=== PATIENT | male | born 1985 | race Two or more races ===

== ENCOUNTER 2025-02-02 22:53 | Inpatient (IN) | payer SELFPAY ==
[~2025-02-02] VITALS: Ht 182.9 cm; Wt 113.4 kg
[2025-02-02 23:05] VITALS: TEMP 97.3
[2025-02-03] VITALS (7 sets, daily range): BP systolic 127–129; BP diastolic 63–81; PULSE 51–55; RESP 17–20; TEMP 97.9–98.6; O2SAT 98–99
[2025-02-03] MEDS ORDERED: SODIUM CHLORIDE FLUSH 10 ML SYR INJ PRN (01:30)
[2025-02-03] MEDS ORDERED: LISINOPRIL2.5 MG PO (03:41)
[2025-02-03] MEDS ORDERED: METOPROLOL SUCC25 MG PO (03:41)
[2025-02-03] MEDS ORDERED: ATORVASTATIN CA20 MG PO (03:41)
[2025-02-03] MEDS ORDERED: ASPIRIN81 MG PO (03:41)
[2025-02-03] MEDS ORDERED: PLAVIX75 MG PO (03:41)
[2025-02-03] MEDS: ASPIRIN 81 MG CHEW TAB PO ONE (03:47)
[2025-02-03 07:43] LABS: CHOL/HDL RATIO 6.5 (3.9-4.7)
[2025-02-03] MEDS: CLOPIDOGREL BISULFATE 75 MG TAB PO SCH (12:48)
[2025-02-03] MEDS: ASPIRIN 81 MG ENTERIC COATED PO SCH (12:48)
[2025-02-03] MEDS ORDERED: ATORVASTATIN 40 MG TAB PO SCH (21:00)
== END 2025-02-03 18:50 | disposition left against medical advice (07) | DRG 103 ==
LOC: FSED 23:02 → ERHOLD 02-03 01:21 → MED/SURG2 02-03 02:53
PROVIDERS: ADMIT Internal Medicine; ATTEND Internal Medicine
DX: R51.9 Headache, unspecified (principal); I10 Essential (primary) hypertension; I25.10 Atherosclerotic heart disease of native coronary artery without angina pectoris; E78.5 Hyperlipidemia, unspecified; R79.89 Other specified abnormal findings of blood chemistry; R00.1 Bradycardia, unspecified; R42 Dizziness and giddiness; E66.9 Obesity, unspecified; Z68.33 Body mass index [BMI] 33.0-33.9, adult; Z79.02 Long term (current) use of antithrombotics/antiplatelets; Z79.82 Long term (current) use of aspirin; Z98.61 Coronary angioplasty status
CPT/HCPCS: 36415; 70450; 70551; 80053; 80061; 80307; 81003; 82550; 84484; 85025; 93005; 99284